=== PATIENT | female | born 1940 | race Caucasian/White ===

== ENCOUNTER 2017-02-08 07:12 | Inpatient (IN) ==
[2017-01-31 10:23] LABS: Basophils % 0.7 % (0.0-0.8); Eosinophils # 0.2 10*3/uL (0.0-0.87); Eosinophils % 2.9 % (0.00-10.9); Hematocrit 43.4 VOL% (35.7-47.0); Hemoglobin 14.3 GM/DL (12.0-16.0); Immature Granulocytes % 1.1 %; Immature Granulocytes Absolute 0.06 #; Lymphocytes # 1.7 10*3/uL (1.4-4.0); Lymphocytes % 30.2 % (21.3-54.2); Mean Corpuscular HGB Conc 32.9 GM/DL (32-36); Mean Corpuscular Hemoglobin 30 PG (27-34); Mean Corpuscular Volume 89.7 FL (87-102); Mean Platelet Volume 10.5 FL (9.6-12.0); Monocytes # 0.4 10*3/uL (0.11-0.8); Monocytes % 6.6 % (1.7-12.7); Neutrophils # 3.3 10*3/uL (1.4-7.4); Neutrophils % 58.5 % (38.7-73.9); Platelet Count 147 T/CUMM (130-400); Red Blood Count 4.84 MC/CUMM (3.8-5.5); Red Cell Distribution Width 13.7 % (9.3-17.3); White Blood Count 5.6 T/CUMM (4-12)
[2017-01-31 10:51] LABS: Calcium 8.8 MG/DL (8.5-10.1); Osmolality,Calculated 281.8 MOS/KG (273-304); Potassium 4.4 MMOL/L (3.5-5.1)
[2017-01-31 11:00] LABS: Apearance,Urine CLEAR (Clear); Bacteria,Urine Occasional /HPF (Few); Bilirubin,Urine Negative (Negative); Blood, Urine Negative (Negative); Glucose,Urine (UA) >=500 mg/dL (Negative); Ketones,Urine Negative (Negative); Mucus,Urine Occasional /LPF (Occasional); Nitrite,Urine Negative (Negative); Protein,Urine Negative; RBC,Urine 1 /HPF (0-4); Squamous Epithelial Cell,Urine Occasional /HPF (0-10); Urine Color Yellow (Yellow); Urine Specific Gravity 1.013 (1.001-1.035); Urine Urobilinogen < 2.0 EU/DL (0.2-1.0); WBC,Urine 1 /HPF (0-6)
--- NOTE | 2017-01-31 12:05 | XRay Report ---
XR chest 2V Indication: Preop evaluation Comparison: Chest x-ray dated July 10, 2015 Technique: Frontal and lateral views of the chest. Findings: Continued moderate cardiomegaly. Chronic change of the lungs without focal consolidation, pleural effusion, or pneumothorax. Visualized osseous and surrounding soft tissue structures appear grossly unchanged. IMPRESSION: Stable chest x-ray. Continued moderate cardiomegaly without jj pulmonary edema. PROCEDURE INTERPRETED AT [facility] DEPARTMENT OF RADIOLOGY Final Report Signed by: Dr Venkatesh Painting
--- NOTE | 2017-01-31 12:10 | EKG Report ---
Stationary ECG Study [facility] Test Date: 01/31/2017 11:04:06 AM Pat Name: LEVI TURPIN Department: Room: Gender: F Jd Edwards Consultant: JESSICA 02-[birth year]17 : 1940 Requested by: Fletcher Alvarez Order Number: [id number] Reading MD: ANDRIY TREVINO Intervals [place] Rate: 59 P: 67 [place]: 184 QRS: 37 QRSD: 69 T: 72 QT: 407 QTc: 406 Interpretive Statements SINUS RHYTHM at 59 bpm LOW QRS VOLTAGE IN PRECORDIAL LEADS Mild NST Electronically Signed On 01-31-17 12:47:05 CDT by ANDRIY TREVINO [id number]
[2017-02-08] MEDS: LACTATED RINGERS 1,000 ML IV SCH ×3 (07:45→23:20)
[2017-02-08] MEDS ORDERED: MIDAZOLAM 2 MG/2 ML VIAL ONE (09:32)
[2017-02-08] MEDS ORDERED: fentaNYL 100 MCG/2 ML VIAL ONE ×2 (09:33→13:00)
--- NOTE | 2017-02-08 09:34 | History and Physical Update ---
History and Physical Update - History and Physical H&P was reviewed, the patient examined and there: are no changes in the patients condition since last H&P was completed. (The patient is complaining more of right knee arthritic pain. Will inject during surgery.)
[2017-02-08] MEDS ORDERED: GLYCOPYRROLATE 0.4 MG/2 ML VIAL ONE (10:04)
[2017-02-08] MEDS ORDERED: PROPOFOL 200 MG/20 ML VIAL IV ONE (10:04)
[2017-02-08] MEDS ORDERED: PHENYLEPHRINE 1 MG/10 ML SYRINGE IV ONE (10:04)
[2017-02-08] MEDS ORDERED: NEOSTIGMINE 10 MG/10 ML VIAL ONE (10:04)
[2017-02-08] MEDS ORDERED: PHENYLEPHRINE 20 MG/250 ML PREMIX IV ONE (10:04)
[2017-02-08] MEDS ORDERED: DEXAMETHASONE 10 MG/1 ML VIAL ONE (10:04)
[2017-02-08] MEDS ORDERED: ONDANSETRON 4 MG/2 ML VIAL ONE (10:04)
[2017-02-08] MEDS ORDERED: LIDOCAINE 1% 5 ML VIAL ONE (10:04)
[2017-02-08] MEDS ORDERED: ROCURONIUM 100 MG/10 ML VIAL IV ONE (10:04)
[2017-02-08] MEDS ORDERED: ROPIVACAINE 0.5% 30 ML VIAL ONE (10:15)
[2017-02-08] MEDS ORDERED: BETAMETH SODIUM PHOS/ACETATE 30 MG/5 ML VIAL ONE (10:39)
[2017-02-08] MEDS ORDERED: ceFAZolin 1,000 MG VIAL ONE (10:43)
[2017-02-08] MEDS ORDERED: ceFAZolin 2,000 MG in PREMIX 1 EACH IV ONE (10:45)
--- NOTE | 2017-02-08 11:15 | XRay Report ---
XR calcaneus 2V RT Indication: Calcaneus osteotomy Comparison: None available Findings: Fluoroscopic imaging was used during osteotomy of the calcaneus. The alignment and hardware appears within normal limits on the images submitted. Fluoroscopy time 8 seconds Impression: Osteotomy changes as described above. PROCEDURE INTERPRETED AT [facility] DEPARTMENT OF RADIOLOGY Final Report Signed by: Dr. Bola Lama
[2017-02-08] MEDS ORDERED: BACITRACIN OINT 0.9 GM PACK TOP ONE (12:15)
[2017-02-08] MEDS ORDERED: EPINEPHRINE 0.3 MG IJ PRN (12:30)
[2017-02-08] MEDS ORDERED: MAGNESIUM HYDROXIDE SUSP 30 ML UDCUP PO PRN (12:31)
[2017-02-08] MEDS ORDERED: MORPHINE 2 MG/1 ML SYRINGE IV PRN (12:31)
[2017-02-08] MEDS ORDERED: GLUCAGON 1 MG VIAL IM PRN (12:31)
[2017-02-08] MEDS ORDERED: DEXTROSE 50% 25 GM/50 ML SYRINGE IV PRN (12:31)
[2017-02-08] MEDS ORDERED: ONDANSETRON 4 MG/2 ML VIAL IV PRN (12:31)
[2017-02-08] MEDS ORDERED: KETOROLAC 15 MG/1 ML VIAL IV PRN (12:31)
[2017-02-08] MEDS ORDERED: ACETAMINOPHEN/CODEINE 300-30 MG TABLET PO PRN ×2 (12:34)
--- NOTE | 2017-02-08 12:40 | Operative Note ---
Date of procedure: 02/08/17 Procedure: DIAGNOSIS: Right stage II posterior tibialis tendinitis. Right painful second hammertoe. Right knee osteoarthritis PROCEDURE: #1 right calcaneal medializing osteotomy #2 Right FDL to navicular tendon transfer #3 right second toe PIP arthroplasty #4 right knee corticosteroid injection SURGEON: Daniella ANESTHESIA: Right with postoperative popliteal block PROCEDURE and FINDINGS: After adequate anesthesia was induced, the right lower extremity was prepped and draped in usual sterile fashion. The limb was exsanguinated with Esmarch. Tourniquet was inflated to 300 mmHg. Estimated tourniquet time was 99 minutes and was released after splint and dressing application. A oblique incision was made over the lateral wall of her calcaneal tuberosity. Using combination sharp and blunt dissection, the calcaneal tuberosity was identified. An oblique osteotomy was performed using a saw and completed with an osteotome. The calcaneal tuberosity was medialized approximately 1 cm and was secured with a pin introduced posteriorly. The osteotomy was then fixed with a partially threaded stainless steel 6.5 mm screw. Image intensification was used in multiple planes during this portion of the procedure. Wounds were irrigated. Subcutaneous tissue was approximated with 3-0 Vicryl. Skin was closed with 3-0 nylon. Attention was directed medially. A longitudinal incision was made from the tip of the medial malleolus to the proximal portion of her first metatarsal. Deep fascia was entered. The posterior tibialis tendon demonstrated elongated distally just proximal to the insertion on the navicular. The floor of the posterior tibialis tendon sheath was incised longitudinally, the FDL tendon was identified. It was traced distally to the knot of Kavon. FDL and FHL tendons were sutured together with 2-0 Ethibond. The FDL tendon was released proximal to this juncture and was tagged with a 2-0 Ethibond. A appropriately sized drill hole was placed in the navicular. The tendon was passed through the the navicular. The tendon transfer was then tensioned in flexion and inversion. Multiple 2-0 Ethibond sutures were used to secure the repair. Deep layers were closed with 0 Vicryl. Subcutaneous tissue was approximated with 3-0 Vicryl. Skin was closed with 3-0 nylon. The second hammertoe was addressed through an full-thickness elliptical incision over the distal aspect of her second proximal phalanx. The distal portion of the proximal phalanx was resected with bone cutters. The cartilage from the proximal middle phalanx was denuded, exposing cancellus bone. A 0.0625 K wire was interviewed reduced in an antegraderetrograde technique. The pin was cut and a Jurgan's ball was placed. Wound was irrigated and closed with 4-0 nylon simple suture. 3 cc Celestone was injected into the knee through an anterior medial portal using aseptic technique. Bacitracin and a sterile dressing were applied. Short leg splint was applied. The patient was transferred recovery room. The patient is anticipated to receive a postoperative popliteal block for pain relief. Surgeon / Physician: Fletcher Brewer Jr. Results - Labs CBC & BMP: 01/31/17 10:15 01/31/17 10:10 Discharge Plan - Discharge Medications No Action Ranitidine Tab [Zantac Tab] 150 mg PO BID Carvedilol Cr [Coreg CR] 40 mg PO DAILY Aspirin [Ecotrin] 81 mg PO DAILY metFORMIN [Glucophage] 500 mg PO DAILY W/SUPPER DULoxetine [Cymbalta] 30 mg PO TID Oxybutynin [Ditropan] 5 mg PO DAILY Cyanocobalamin Inj [Vitamin B12 Inj] 1,000 mcg IM Q30D EPINEPHrine [Epipen 2-Xu] 0.3 mg IJ DIRECTED PRN PRN Reason: Anaphylaxis Benzonatate [Tessalon] 100 mg PO BID Cetirizine Tab [ZyrTEC Tab] 10 mg PO DAILY metFORMIN [Glucophage] 1,000 mg PO DAILY W/BREAKFAST Rosuvastatin [Crestor] 10 mg PO DAILY Lisinopril 1 tablet PO DAILY - Follow Up or Referral Follow Up: Fletcher Brewer Jr., MD [Physician] - - Forms/Instructions Instructions: Irma Garcia (DC)
[2017-02-08] MEDS ORDERED: DESFLURANE 1 UNIT/15 MINUTE INH ONE (12:59)
--- NOTE | 2017-02-08 13:16 | Anesthesia Post-Op ---
Anesthesia Post OP - Post Ansesthetic Evaluation Patient seen in post op: Yes Resp: within normal limits CV: within normal limits Mental: within normal limits Temp: within normal limits Mybj-[id number]-[id number]: within normal limits Nausea and Vomiting: within normal limits Pain: within normal limits
--- NOTE | 2017-02-08 16:24 | Orthopedic Progress Note ---
Orthopedics - Subjective Interval history: Ms. Erazo is upset about being admitted for observation. However she had ranged no one to be with her at night. She has threatened to leave AMA. Right lower extremity splinted. Capillary refill is less than 2 seconds. The block appears to still be working. Plan: I discussed with Mrs. Erazo that I feel that her age that she needs to have somebody with her tonight. I have strongly encouraged that she stay here. We have contacted nursing services, risk-management. We will plan to discharge her home tomorrow morning. Exam - Constitutional Vitals: Period Temp Pulse Resp BP Sys/Vogel Pulse Ox Last 24 Hr 97.0 F-97.6 F 62-85 16-19 109-157/65-83 88-95 Results - Labs CBC & BMP: 01/31/17 10:15 01/31/17 10:10 Specialty Discharge - Follow Up or Referrals Follow up with: Fletcher Brewer Jr., MD [Physician] -
[2017-02-08] MEDS: MORPHINE 2 MG/1 ML SYRINGE IV PRN ×2 (17:22→20:16)
[2017-02-08] MEDS: INSULIN LISPRO 100 UNIT/ML SUBCUT SCH ×2 (17:33→20:54)
[2017-02-08] MEDS: FAMOTIDINE 20 MG TABLET PO SCH (20:14)
[2017-02-08] MEDS: BENZONATATE 100 MG CAPSULE PO SCH (20:14)
[2017-02-08] MEDS: ceFAZolin 2,000 MG in PREMIX 1 EACH IV SCH (20:15)
[2017-02-09] MEDS: ceFAZolin 2,000 MG in PREMIX 1 EACH IV SCH (05:10)
[2017-02-09] MEDS: LACTATED RINGERS 1,000 ML IV SCH (06:03)
[2017-02-09] MEDS: INSULIN LISPRO 100 UNIT/ML SUBCUT SCH ×4 (08:34→20:49)
[2017-02-09] MEDS: ROSUVASTATIN 10 MG TABLET PO SCH (08:36)
[2017-02-09] MEDS: CETIRIZINE 10 MG TABLET PO SCH (08:36)
[2017-02-09] MEDS: OXYBUTYNIN 5 MG TABLET PO SCH (08:36)
[2017-02-09] MEDS: CARVEDILOL CR 40 MG CAPSULE PO SCH (08:36)
[2017-02-09] MEDS: BENZONATATE 100 MG CAPSULE PO SCH ×2 (08:36→20:49)
[2017-02-09] MEDS: DULoxetine 30 MG CAPSULE PO SCH (08:37)
[2017-02-09] MEDS: metFORMIN 500 MG TABLET PO SCH ×2 (08:37→16:48)
[2017-02-09] MEDS: FAMOTIDINE 20 MG TABLET PO SCH ×2 (08:37→20:49)
[2017-02-09] MEDS: ASPIRIN EC 81 MG TABLET PO SCH (08:37)
[2017-02-09] MEDS ORDERED: traMADol 50 MG TABLET PO PRN (08:48)
--- NOTE | 2017-02-09 08:50 | Orthopedic Progress Note ---
Orthopedics - Subjective Interval history: Ms Erazo feels better this morning. She agreed that she needed to spend the night. She is anxious to be discharged home as quickly she can. Right lower extremity she can flex extend her toes. She has some slight serosanguineous drainage posterior laterally. Response been overwrapped. Plan: Discharge instructions were reviewed. Keep splint clean, dry and intact. Elevate limb 6 inches over heart level. Strict nonweightbearing right lower extremity. Prescription for tramadol was written. Arrange for knee walker for home use. Set up home health physical therapy. Exam - Constitutional Vitals: Period Temp Pulse Resp BP Sys/Vogel Pulse Ox Last 24 Hr 96.7 F-98.3 F 76-95 16-20 109-157/64-85 88-100 Results - Labs CBC & BMP: 01/31/17 10:15 01/31/17 10:10 Specialty Discharge - Follow Up or Referrals Follow up with: Fletcher Brewer Jr., MD [Physician] -
[2017-02-09] MEDS: MORPHINE 2 MG/1 ML SYRINGE IV PRN ×2 (08:51→14:09)
[2017-02-09] MEDS: traMADol 50 MG TABLET PO PRN (14:29)
--- NOTE | 2017-02-10 07:42 | Orthopedic Progress Note ---
Orthopedics - Subjective Interval history: Ms Erazo is comfortable. She has decided on swing bed placement. She will be here through Monday. Right lower extremity is neurovascularly unchanged. Splint is intact. Her sugars have been running high, probably related to the intra-articular corticoid steroid injection for knee osteoarthritis. Since she is going to be here through Monday, I am going to consult the hospitalist service for diabetes management. Otherwise, continue physical therapy and mobilization. Exam - Constitutional Vitals: Period Temp Pulse Resp BP Sys/Vogel Pulse Ox Last 24 Hr 97.4 F-98.7 F 72-86 18-20 115-158/67-79 89-95 Results - Labs CBC & BMP: 01/31/17 10:15 01/31/17 10:10 Specialty Discharge - Follow Up or Referrals Follow up with: Fletcher Brewer Jr., MD [Physician] -
[2017-02-10] MEDS: INSULIN LISPRO 100 UNIT/ML SUBCUT SCH ×4 (08:22→21:14)
[2017-02-10] MEDS: ROSUVASTATIN 10 MG TABLET PO SCH (08:24)
[2017-02-10] MEDS: metFORMIN 500 MG TABLET PO SCH ×2 (08:24→18:12)
[2017-02-10] MEDS: CARVEDILOL CR 40 MG CAPSULE PO SCH (08:24)
[2017-02-10] MEDS: ASPIRIN EC 81 MG TABLET PO SCH (08:24)
[2017-02-10] MEDS: OXYBUTYNIN 5 MG TABLET PO SCH (08:25)
[2017-02-10] MEDS: CETIRIZINE 10 MG TABLET PO SCH (08:25)
[2017-02-10] MEDS: DULoxetine 30 MG CAPSULE PO SCH (08:25)
[2017-02-10] MEDS: BENZONATATE 100 MG CAPSULE PO SCH ×2 (08:25→21:07)
[2017-02-10] MEDS: FAMOTIDINE 20 MG TABLET PO SCH ×2 (08:25→21:07)
[2017-02-10] MEDS: traMADol 50 MG TABLET PO PRN (08:26)
[2017-02-10] MEDS ORDERED: BISACODYL 10 MG SUPP RECTAL ONE (10:44)
--- NOTE | 2017-02-10 10:47 | Hospitalist Consult Note ---
Addendum entered and electronically signed by Alejandra Bird NP 02/10/17 11:01: Also, Patient is suppose to go to [facility] for rehab on Monday. Original Note: Assessment and Plan - Time spent with patient Time spent with patient: Greater than 30 minutes (1) Diabetes Status: Acute Assessment and plan: Metformin was held in preparation for surgery. Metformin restarted 02/09/17 after surgery and blood sugars are improving. Will continue bedside glucose monitoring. Will add sliding scale. Will continue to monitor. Will discuss with Dr Sykes for further recommendations. Current Visit: Yes History of Present Illness - Consult Narrative Reason for consult: Medical Management/Diabetes History of present illness: Ms. Erazo is a very pleasant 76 year old white female with PMHx of HTN, Kidney disease, osteoporosis, and diabetes; admitted to Surgical Floor room 323 for planned/scheduled right calcaneal medializing osteotomy, right second toe PIP arthroplasty and right knee corticosteroid injection by Dr Brewer. 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 She has been on Metformin 1000mg w/ breakfast and 500mg w/ supper. She reports that it has been working fairly well for her. She was off Metformin for planned surgery but Metformin was resumed 02/09/17. Hospital medicine was consulted for assistance with medical management of diabetes. CC: Fletcher Brewer Jr., - Home Medications and Allergies Home Medications: Home Medications Medication Instructions Recorded Confirmed Type Aspirin [Ecotrin] 81 mg PO DAILY 01/31/17 02/08/17 History Carvedilol Cr [Coreg CR] 40 mg PO DAILY 01/31/17 02/08/17 History Cetirizine Tab [ZyrTEC Tab] 10 mg PO DAILY 01/31/17 02/08/17 History Cyanocobalamin Inj [Vitamin B12 1,000 mcg IM Q30D 01/31/17 02/08/17 History Inj] DULoxetine [Cymbalta] 90 mg PO DAILY 01/31/17 02/08/17 History EPINEPHrine [Epipen 2-Xu] 0.3 mg IM ONCE PRN 01/31/17 02/08/17 History Lisinopril 1 tablet PO DAILY 01/31/17 02/08/17 History Oxybutynin [Ditropan] 5 mg PO DAILY 01/31/17 02/08/17 History Ranitidine Tab [Zantac Tab] 150 mg PO BID 01/31/17 02/08/17 History Rosuvastatin [Crestor] 10 mg PO DAILY 01/31/17 02/08/17 History metFORMIN [Glucophage] 1,000 mg PO DAILY W/BREAKFAST 01/31/17 02/08/17 History metFORMIN [Glucophage] 500 mg PO DAILY W/SUPPER 01/31/17 02/08/17 History Benzonatate [Tessalon] 100 mg PO BID 02/08/17 02/08/17 History Allergies/Adverse Reactions: Allergies Allergy/AdvReac Type Severity Reaction Status Date / Time hydrocodone [From Lortab] Allergy Intermediate ITCHING Verified 02/08/17 07:23 Oxycodone [From Percocet] Allergy Intermediate ITCHING Verified 02/08/17 07:23 Medical,Surgical,& Family Hx - Medical History Cardio: History of: Cardiac Dysrhythmia (MURMUR.), Hypertension, SD (2007), Cardiovascular Problems (DR TREVINO; LAST VISIT 12/2016.) Psychological: History of: Depression Neurology: History of: Peripheral Neuropathy No history of: Seizures HEENT: History of: Eye Problem (GLASSES, CATARACTS) Endocrine: History of: Diabetes Mellitus (NIDDM) Respiratory: History of: Obstructive Sleep Apnea (PT DOES NOT USE CPAP.), Pneumonia (PAST HX) Comment Only: Respiratory Problems (FLU VAC- YES; PNEU VAC- YES.) Genitourinary: History of: Kidney Stones Gastrointestinal: History of: Diverticulitis/ Diverticulosis, GERD Musculoskeletal: History of: Musculoskeletal Problems (ARTHRITIS) Hematology: History of: Anemia (PAST HX) Other: History of: Anaphylaxis (2008.), Miscellaneous Medical Problems (PELVIC MASS REMOVED.) - Surgical History Cardiac Surgeries: Sugical HX of: Cardiac Catheterization HEENT Surgeries: Surgical HX of: Tonsilectomy & Adenoidectomy Abdominal Surgeries: Surgical HX of: Abdominal Surgery, Appendectomy, Colonoscopy, EGD Reproductive Surgeries: Surgical HX of;: Gynecologic Surgery, Hysterectomy Orthopedic Surgeries: Surgical HX of;: Orthopedic Surgery, Total Knee Replacement (LEFT KNEE.) - Family History Family History: Reports;: Family Cancer, Family Heart Disease, Family Hypertension - Social History Smoking Status: Never smoker Frequency of Alcohol Use: None Type of Drug Use: None Marital Status: Lives With:: Alone (At [facility]) Functional capacity: uses cane/walker (has apllied for an electric scooter) Review of systems: ROS systems completed and pertinent positives and negatives in the HPI. Exam - Constitutional Vitals: Period Temp Pulse Resp BP Sys/Vogel Pulse Ox Last 24 Hr 96.1 F-98.7 F 60-86 16-20 115-163/67-99 89-95 General appearance: normal weight, no acute distress, over weight - Head Head exam: Present: normal inspection - Eye Eye exam: Present: EOMI Pupils: Present: MERVIN - Neck Neck exam: Present: normal inspection - Respiratory Respiratory exam: Present: clear to auscultation bilaterally. Absent: stridor, wheezes - Cardiovascular Cardiovascular exam: Present: regular rate and rhythm - GI/Abdominal GI/Abdominal exam: Present: normal bowel sounds, soft. Absent: tenderness, rebound - Extremities Exam Extremities exam: Present: normal inspection (right splint/dressing intact to surgical site; elevated; pain appears controlled), full ROM - Neurological Exam Neurological exam: Present: alert, oriented X3 - Psychiatric Psychiatric exam: Present: normal affect, normal mood. Absent: agitated, anxious - Skin Skin exam: Present: normal color, warm, dry Results - Labs CBC & BMP: 01/31/17 10:15 01/31/17 10:10 Lab Results: I have reviewed the past 24 hour labs Labs: Blood sugar this a.m. down to 221; Metformin was restarted on 02/09/17. Specialty Discharge - Follow Up or Referrals Follow up with: Fletcher Brewer Jr., MD [Physician] -
[2017-02-10] MEDS ORDERED: SODIUM PHOSPHATE ENEMA 133 ML BOTTLE RECTAL ONE (15:08)
[2017-02-11 03:38] LABS: Magnesium 1.9 MG/DL (1.8-2.4); Potassium 4.3 MMOL/L (3.5-5.1)
--- NOTE | 2017-02-11 08:12 | Orthopedic Progress Note ---
Orthopedics - Subjective Interval history: She is postop right foot surgery for Posterior tibial tendon dysfunction and related problems. Stable. No problems. Nurses inform me she is waiting for placement. Lab: stable. afebrile Plan: no change in orthopaedic orders Exam - Constitutional Vitals: Period Temp Pulse Resp BP Sys/Vogel Pulse Ox Last 24 Hr 96.0 F-98.1 F 58-80 17-20 130-158/59-96 89-98 Results - Labs CBC & BMP: 01/31/17 10:15 02/11/17 02:40 Specialty Discharge - Follow Up or Referrals Follow up with: Fletcher Brewer Jr., MD [Physician] -
[2017-02-11] MEDS: metFORMIN 500 MG TABLET PO SCH ×2 (08:50→17:08)
[2017-02-11] MEDS: ASPIRIN EC 81 MG TABLET PO SCH (08:50)
[2017-02-11] MEDS: OXYBUTYNIN 5 MG TABLET PO SCH (08:51)
[2017-02-11] MEDS: FAMOTIDINE 20 MG TABLET PO SCH ×2 (08:51→20:51)
[2017-02-11] MEDS: CARVEDILOL CR 40 MG CAPSULE PO SCH (08:51)
[2017-02-11] MEDS: ROSUVASTATIN 10 MG TABLET PO SCH (08:51)
[2017-02-11] MEDS: DULoxetine 30 MG CAPSULE PO SCH (08:51)
[2017-02-11] MEDS: BENZONATATE 100 MG CAPSULE PO SCH ×2 (08:52→20:51)
[2017-02-11] MEDS: traMADol 50 MG TABLET PO PRN ×2 (08:52→20:52)
[2017-02-11] MEDS: CETIRIZINE 10 MG TABLET PO SCH (08:52)
[2017-02-11] MEDS: INSULIN LISPRO 100 UNIT/ML SUBCUT SCH ×4 (08:57→20:54)
--- NOTE | 2017-02-11 09:48 | Hospitalist Progress Note ---
Assessment and Plan - Time spent with patient Time spent with patient: Less than 30 minutes (1) Diabetes Status: Acute Assessment and plan: 02/11/17 - Improving Blood glucose. A1c 8.1. Continue Metformin; sliding scale coverage; continue to monitor. She c/o requiring an enema yesterday w/ some results but concerned about getting constipated. Will add Colace 100mg BID p.o. 02/10/17 -Metformin was held in preparation for surgery. Metformin restarted 04/18 after surgery and blood sugars are improving. Will continue bedside glucose monitoring. Will add sliding scale. Will continue to monitor. Will discuss with Dr Sykes for further recommendations. Current Visit: Yes Hospitalist: Subjective Interval history: Patient seen and chart reviewed. Ms Erazo just completed physical therapy and sitting up in chair. Splint and dressing to surgical site right lower leg/foot intact. She verbalized feeling okay this morning, just a little tired after completing physical therapy. She reported requiring an enema yesterday with some results, I will add colace 100mg P.O. BID [facility]. Blood sugars have improved. Exam - Constitutional Vitals: Period Temp Pulse Resp BP Sys/Vogel Pulse Ox Last 24 Hr 96.0 F-98.1 F 58-80 17-20 130-158/59-96 89-98 General appearance: no acute distress, over weight - Head Head exam: Present: normal inspection - Eye Eye exam: Present: EOMI Pupils: Present: MERVIN - ENT ENT exam: Present: normal exam - Neck Neck exam: Present: normal inspection - Respiratory Respiratory exam: Present: clear to auscultation bilaterally. Absent: rales, rhonchi, wheezes - Cardiovascular Cardiovascular exam: Present: regular rate and rhythm - GI/Abdominal GI/Abdominal exam: Present: normal bowel sounds, soft. Absent: tenderness, rebound - Extremities Exam Extremities exam: Present: full ROM, other (right leg splint/dressing intact s/ p right second toe PIP arthroplasty;right calcaneal medializing osteotomy;Right FDL to navicular tendon transfer). Absent: edema - Neurological Exam Neurological exam: Present: alert, oriented X3 - Psychiatric Psychiatric exam: Present: normal affect, normal mood. Absent: agitated, anxious - Skin Skin exam: Present: normal color, warm, dry Results - Labs CBC & BMP: 01/31/17 10:15 02/11/17 02:40 Lab Results: I have reviewed the past 24 hour labs Labs: A1c 8.1 Specialty Discharge - Follow Up or Referrals Follow up with: Fletcher Brewer Jr., MD [Physician] -
[2017-02-11] MEDS: DOCUSATE SODIUM 100 MG CAPSULE PO SCH ×2 (10:16→20:51)
[2017-02-12] MEDS: INSULIN LISPRO 100 UNIT/ML SUBCUT SCH ×4 (09:05→20:27)
[2017-02-12] MEDS: metFORMIN 500 MG TABLET PO SCH ×2 (09:05→16:51)
[2017-02-12] MEDS: DOCUSATE SODIUM 100 MG CAPSULE PO SCH ×2 (09:06→20:27)
[2017-02-12] MEDS: ASPIRIN EC 81 MG TABLET PO SCH (09:06)
[2017-02-12] MEDS: CARVEDILOL CR 40 MG CAPSULE PO SCH (09:06)
[2017-02-12] MEDS: ROSUVASTATIN 10 MG TABLET PO SCH (09:22)
[2017-02-12] MEDS: CETIRIZINE 10 MG TABLET PO SCH (09:23)
[2017-02-12] MEDS: BENZONATATE 100 MG CAPSULE PO SCH ×2 (09:23→20:27)
[2017-02-12] MEDS: OXYBUTYNIN 5 MG TABLET PO SCH (09:23)
[2017-02-12] MEDS: FAMOTIDINE 20 MG TABLET PO SCH ×2 (09:23→20:27)
[2017-02-12] MEDS ORDERED: diphenhydrAMINE 50 MG/1 ML VIAL IM ONE ×2 (09:50→15:06)
[2017-02-12] MEDS ORDERED: diphenhydrAMINE 50 MG/1 ML VIAL ONE (09:55)
--- NOTE | 2017-02-12 10:11 | Hospitalist Progress Note ---
Assessment and Plan - Time spent with patient Time spent with patient: Less than 30 minutes (1) Diabetes Status: Acute Assessment and plan: 02/12/17 - Blood Glucose remains stable. Continue Metformin; sliding scale coverage; continue monitoring. Plan to discharge on Monday to [facility] facility 02/11/17 - Improving Blood glucose. A1c 8.1. Continue Metformin; sliding scale coverage; continue to monitor. She c/o requiring an enema yesterday w/ some results but concerned about getting constipated. Will add Colace 100mg BID p.o. 02/10/17 -Metformin was held in preparation for surgery. Metformin restarted 04/18 after surgery and blood sugars are improving. Will continue bedside glucose monitoring. Will add sliding scale. Will continue to monitor. Will discuss with Dr Sykes for further recommendations. Current Visit: Yes Hospitalist: Subjective Interval history: 02/12/17 Patient seen and chart reviewed. Patient denies shortness of breath, fever, chills, nausea or vomiting. Patient had just returned to her bed from sitting up in the chair, no acute distress, but appeared upset and verbalized was because she is experiencing itching especially under splint to right leg, nursing staff was giving her morning medications including zyrtec, she feels that will help her complaint and a new ice pack. When asked if anything else was bothering her she states "I told you what was wrong, can't you hear". I explained to her that I just want to help her be as comfortable as possible and if she needs anything else to please let us know. Patient should be discharged tomorrow if approved to go to [facility]. Blood Glucose levels have been stable on current regimen treatment. Exam - Constitutional Vitals: Period Temp Pulse Resp BP Sys/Vogel Pulse Ox Last 24 Hr 96.1 F-97.3 F 61-79 17-20 138-165/72-85 91-97 General appearance: no acute distress, over weight - Head Head exam: Present: normal inspection - Eye Eye exam: Present: EOMI Pupils: Present: MERVIN - Neck Neck exam: Present: normal inspection - Respiratory Respiratory exam: Present: clear to auscultation bilaterally. Absent: stridor, wheezes - Cardiovascular Cardiovascular exam: Present: regular rate and rhythm - GI/Abdominal GI/Abdominal exam: Present: normal bowel sounds, soft. Absent: tenderness, rebound - Extremities Exam Extremities exam: Present: full ROM. Absent: edema (right leg splint/dressing intact) - Neurological Exam Neurological exam: Present: alert, oriented X3 - Psychiatric Psychiatric exam: Present: normal affect, normal mood, agitated (because she is experiencing some itching especially under splint to right lower leg). Absent: anxious - Skin Skin exam: Present: normal color, warm, dry Results - Labs CBC & BMP: 01/31/17 10:15 02/11/17 02:40 Lab Results: I have reviewed the past 24 hour labs Specialty Discharge - Follow Up or Referrals Follow up with: Fletcher Brewer Jr., MD [Physician] -
[2017-02-12] MEDS ORDERED: ACETAMINOPHEN/CODEINE 300-30 MG TABLET PO PRN (10:23)
--- NOTE | 2017-02-12 10:28 | Orthopedic Progress Note ---
Orthopedics - Subjective Interval history: This lady is alert oriented and stable following surgery right foot and ankle for among other things posterior tibial tendinitis syndrome. Current nursing issue is her continued complaints and wanting to be discharged. This exists nothing new it is been the situation since immediately after surgery. The problem is that she is not anybody to look after her at home and she would most likely get into difficulties if discharge. Arrangements are underway to to set up for a temporary senior care placement but that will not be any sooner than Monday. She is also complaining of itching. On her face is acne rosacea. Checking under her splint from both sides reveals no rash--all looks fine. Recommendations 1 Benadryl 50 mg IM 2. Benadryl p.o. 50 mg regularly 3. Xanax 0.5 mg p.o. twice daily Exam - Constitutional Vitals: Period Temp Pulse Resp BP Sys/Vogel Pulse Ox Last 24 Hr 96.1 F-97.3 F 61-79 17-20 138-165/72-85 91-97 Results - Labs CBC & BMP: 01/31/17 10:15 02/11/17 02:40 Specialty Discharge - Follow Up or Referrals Follow up with: Fletcher Brewer Jr., MD [Physician] -
[2017-02-12] MEDS ORDERED: ALPRAZolam 0.5 MG TABLET PO SCH (10:30)
[2017-02-12] MEDS ORDERED: diphenhydrAMINE CAP 50 MG CAPSULE PO SCH (10:30)
[2017-02-12] MEDS: DULoxetine 30 MG CAPSULE PO SCH (11:04)
[2017-02-12] MEDS: diphenhydrAMINE CAP 50 MG CAPSULE PO SCH ×3 (14:29→22:26)
--- NOTE | 2017-02-12 15:23 | Orthopedic Progress Note ---
Orthopedics - Subjective Interval history: Called to see patient at request of nursing service 14:55, reason was unruly behavior. She was found in bathroom, all clothes removed and trying to remover her splint. Complaint was itching and wanting to go home. Her po benadryl was found on floor where she had apparently spit it out and she refused another. We attempted to call her daughter to see if she would take Mrs. Erazo but no answer. Nurses say daughter had discussed this with them by phone this morning and had reiterated at that time that she was unable to look after her mother. I was unsuccessful in convincing the patient to settle down and remain hospitalized. Inspection under her splint revealed no rash or other indication of itching problems. I contacted nurse curtain supervisor to evaluate patient. We will give her benadryl im if she refuses po. It is unsafe to discharge her in this situation without reliable home help. All codeine type meds have been discontinued, although she had not had any for much of the day anyway--pain not an issue anyway. Agitation is. Now on Xanax. Exam - Constitutional Vitals: Period Temp Pulse Resp BP Sys/Vogel Pulse Ox Last 24 Hr 96.1 F-97.3 F 61-79 17-20 148-165/72-94 92-97 Results - Labs CBC & BMP: 01/31/17 10:15 02/11/17 02:40 Specialty Discharge - Follow Up or Referrals Follow up with: Fletcher Brewer Jr., MD [Physician] -
[2017-02-12] MEDS: IBUPROFEN 800 MG TABLET PO SCH ×2 (16:51→22:26)
[2017-02-12] MEDS: ALPRAZolam 0.5 MG TABLET PO SCH ×2 (16:51→20:27)
[2017-02-13 04:54] LABS: Basophils # 0.1 10*3/uL (0.0-0.2); Basophils % 0.7 % (0.0-0.8); Eosinophils # 0.2 10*3/uL (0.0-0.87); Eosinophils % 3.5 % (0.00-10.9); Hematocrit 40.7 VOL% (35.7-47.0); Hemoglobin 13.3 GM/DL (12.0-16.0); Immature Granulocytes Absolute 0.07 #; Lymphocytes # 2.5 10*3/uL (1.4-4.0); Lymphocytes % 35.4 % (21.3-54.2); Mean Corpuscular HGB Conc 32.7 GM/DL (32-36); Mean Corpuscular Hemoglobin 30 PG (27-34); Mean Corpuscular Volume 92.3 FL (87-102); Mean Platelet Volume 10.7 FL (9.6-12.0); Monocytes # 0.6 10*3/uL (0.11-0.8); Monocytes % 8.1 % (1.7-12.7); Neutrophils # 3.6 10*3/uL (1.4-7.4); Neutrophils % 51.3 % (38.7-73.9); Platelet Count 156 T/CUMM (130-400); Red Blood Count 4.41 MC/CUMM (3.8-5.5); Red Cell Distribution Width 13.9 % (9.3-17.3); White Blood Count 6.9 T/CUMM (4-12)
[2017-02-13 05:26] LABS: Calcium 9.5 MG/DL (8.5-10.1); Osmolality,Calculated 284.5 MOS/KG (273-304); Potassium 3.8 MMOL/L (3.5-5.1)
[2017-02-13] MEDS: diphenhydrAMINE CAP 50 MG CAPSULE PO SCH (05:58)
[2017-02-13] MEDS: IBUPROFEN 800 MG TABLET PO SCH (06:10)
[2017-02-13] MEDS: INSULIN LISPRO 100 UNIT/ML SUBCUT SCH ×2 (08:31→11:16)
[2017-02-13] MEDS: OXYBUTYNIN 5 MG TABLET PO SCH (08:32)
[2017-02-13] MEDS: CETIRIZINE 10 MG TABLET PO SCH (08:32)
[2017-02-13] MEDS: ROSUVASTATIN 10 MG TABLET PO SCH (08:32)
[2017-02-13] MEDS: ASPIRIN EC 81 MG TABLET PO SCH (08:32)
[2017-02-13] MEDS: DULoxetine 30 MG CAPSULE PO SCH (08:32)
[2017-02-13] MEDS: ALPRAZolam 0.5 MG TABLET PO SCH (08:32)
[2017-02-13] MEDS: BENZONATATE 100 MG CAPSULE PO SCH (08:32)
[2017-02-13] MEDS: FAMOTIDINE 20 MG TABLET PO SCH (08:32)
[2017-02-13] MEDS: CARVEDILOL CR 40 MG CAPSULE PO SCH (08:32)
[2017-02-13] MEDS: metFORMIN 500 MG TABLET PO SCH (08:32)
[2017-02-13] MEDS: DOCUSATE SODIUM 100 MG CAPSULE PO SCH (08:32)
--- NOTE | 2017-02-13 08:54 | Discharge Summary ---
Hospital Course - Hospital Course Hospital Course: Ms. Erazo was admitted after undergoing a calcaneal osteotomy with FDL tendon transfer for stage II posterior tibialis tendinitis. She is admitted for observation overnight for her obstructive sleep apnea. However the patient demonstrated that she was unable to go home and to take care of herself. She was unable to pass physical therapy. She was discharged to a swing bed in stable condition. The patient did attempt to remove her splint yesterday for itching. It was repositioned. The rationale for why the splint was on in the importance of maintaining were discussed. I discussed potential disruption of her tendon transfer. Specialty Discharge - Follow Up or Referrals Follow up with: Fletcher Brewer Jr., MD [Physician] - 02/23/17 2:10 pm Discharge Plan - Discharge Data Disposition: Disch/Xfer to Snf Discharge Diet: diabetic diet Hygiene: keep area(s) dry Weight Bearing at Discharge: non-weight bearing Driving: not until seen by doctor - Discharge Medications New diphenhydrAMINE CAP [Benadryl Cap] 50 mg PO Q8H capsule Docusate Sodium Cap [Colace Cap] 100 mg PO BID capsule Ibuprofen Tab [Motrin Tab] 800 mg PO Q8H tablet Continue Ranitidine Tab [Zantac Tab] 150 mg PO BID Carvedilol Cr [Coreg CR] 40 mg PO DAILY Aspirin [Ecotrin] 81 mg PO DAILY metFORMIN [Glucophage] 500 mg PO DAILY W/SUPPER DULoxetine [Cymbalta] 90 mg PO DAILY Oxybutynin [Ditropan] 5 mg PO DAILY Cyanocobalamin Inj [Vitamin B12 Inj] 1,000 mcg IM Q30D EPINEPHrine [Epipen 2-Xu] 0.3 mg IM ONCE PRN PRN Reason: Allergic Reaction Benzonatate [Tessalon] 100 mg PO BID Cetirizine Tab [ZyrTEC Tab] 10 mg PO DAILY metFORMIN [Glucophage] 1,000 mg PO DAILY W/BREAKFAST Rosuvastatin [Crestor] 10 mg PO DAILY Lisinopril 1 tablet PO DAILY - Follow Up or Referral Follow Up: Fletcher Brewer Jr., MD [Physician] - 02/23/17 2:10 pm - Forms/Instructions Instructions: [employer] (DC) Additional Discharge Instructions: Follow-up appointment 10-14 days. Keep splint clean, dry and intact. Strict nonweightbearing right lower extremity. Elevate 6 inches over heart level. Prescription for tramadol was written. Exam - Constitutional Vitals: Period Temp Pulse Resp BP Sys/Vogel Pulse Ox Last 24 Hr 96.0 F-98.2 F 59-75 16-19 133-159/63-94 91-98 Discharge Results Labs on day of discharge: Labs from last 24 hours 02/13/17 02/13/17 02/13/17 06:41 04:19 04:19 WBC 6.9 RBC 4.41 Hgb 13.3 Hct 40.7 MCV 92.3 MCH 30 MCHC 32.7 RDW 13.9 Plt Count 156 MPV 10.7 Neut % (Auto) 51.3 Lymph % (Auto) 35.4 Sibley % (Auto) 8.1 Eos % (Auto) 3.5 Baso % (Auto) 0.7 Neut # (Auto) 3.6 Lymph # (Auto) 2.5 S[place]y # (Auto) 0.6 Eos # (Auto) 0.2 Baso # (Auto) 0.1 Immature Gran % 1.0 Nucleated RBC % 0.0 Immature Gran # 0.07 Nucleated RBCs # 0.00 Immature Plt Fraction 0.0 Sodium 139 Potassium 3.8 Chloride 99 Carbon Dioxide 33 H Anion Gap 10.8 BUN 22 H Creatinine 0.90 GFR Calculation 72 BUN/Creatinine Ratio 24.00 H Glucose 187 H POC Glucose 222 H Calculated Osmolality 284.5 Calcium 9.5 Magnesium 2.0 02/12/17 02/12/17 02/12/17 20:09 16:09 10:57 WBC RBC Hgb Hct MCV MCH MCHC RDW Plt Count MPV Neut % (Auto) Lymph % (Auto) Sibley % (Auto) Eos % (Auto) Baso % (Auto) Neut # (Auto) Lymph # (Auto) Sibley # (Auto) Eos # (Auto) Baso # (Auto) Immature Gran % Nucleated RBC % Immature Gran # Nucleated RBCs # Immature Plt Fraction Sodium Potassium Chloride Carbon Dioxide Anion Gap BUN Creatinine GFR Calculation BUN/Creatinine Ratio Glucose POC Glucose 224 H 179 H 176 H Calculated Osmolality Calcium Magnesium DS: Provider Date of admission: 02/08/17 12:31 Primary care physician: Mark Farias Attending physician on admission: Fletcher Brewer Jr., Consults: 02/08/17 12:31 Consult to Physical Therapy [CONS] Routine Reason for Physical Therapy: Evaluate and Treat Start Therapy: Today Consult Comment: nwb rle 02/08/17 12:33 Consult to Case Mgmt/Social Srvs [CONS] Routine Reason for Case Mgmt/Social Srvs: Home Health Rehab Equipment Consult Comment: knee walker, wheel chair 02/09/17 11:17 Consult to Case Mgmt/Social Srvs [CONS] Routine Reason for Case Mgmt/Social Srvs: Rehab 02/09/17 11:18 Consult to Occupational Therapy [CONS] Routine Reason for Occupational Therapy: Evaluate and Treat 02/10/17 07:39 Consult to Physician [CONS] Routine 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
[2017-02-13] MEDS ORDERED: TUBERCULIN SKIN TEST 0.1 ML SYRINGE INTRADERM ONE (09:24)
--- NOTE | 2017-02-13 09:27 | Case Mgmt Physician Query Form ---
TB Signs and Symptoms Screening ([place]) INSTRUCTIONS: To be completed annually on residents/staff with a significant Tuberculin Skin Test (TST) upon admission/hire or a prior significant TST. To be completed on all staff at hire. Please respond to each listed symptom with an (X) in either the "YES" or "NO" box. Do you currently have any of the following symptoms: YES NO ( ) (x ) A cough If yes, is it: ( ) Productive ( ) Non- productive ( ) ( x) Hemoptysis (spitting up blood) ( ) (x ) Chest pains ( ) (x ) Weight Loss ( ) ( x) Fever ( ) ( x Night Sweats (x ) ( ) Weakness ( ) (x ) Loss of Appetite ( ) ( x) Difficulty Breathing If you answered YES" to any of the above questions, how long have symptoms been present? Comments: If you have any questions, please contact me. Thank you, Macye Whalen RN, Office : [phone] Email : [email or web address]
--- NOTE | 2017-02-13 09:43 | Hospitalist Progress Note ---
Assessment and Plan (1) Rupture of right posterior tibialis tendon Status: Acute Assessment and plan: s/p right calcaneal medializing osteotomy, right FDL to navicular tendon transfer and right, second toe PIP, right knee corticosteroid injection Current Visit: Yes (2) Diabetes Status: Acute Assessment and plan: hgb A1c 8.1 cont increase metformin to 1000 mg po bid, and added glyburide. Current Visit: Yes Hospitalist: Subjective Interval history: Patient has been rather hateful toward nursing. He refuses to let any nurses that are black of her medications. Administration is been advised of the problems with her. She is refused to go to [facility] today. She is temporarily agreed to go to [facility] she has been discharged. Exam - Constitutional Vitals: Period Temp Pulse Resp BP Sys/Vogel Pulse Ox Last 24 Hr 96.0 F-98.2 F 59-75 16-19 133-159/63-94 91-98 Exam: Heart Rate-[RRR] Lungs-[CTAB] GI-[+bs soft, NT] Ext-[no edema] Results - Labs CBC & BMP: 02/13/17 04:19 02/13/17 04:19 Lab Results: I have reviewed the past 24 hour labs Specialty Discharge - Follow Up or Referrals Follow up with: Fletcher Brewer Jr., MD [Physician] - 02/23/17 2:10 pm
[2017-02-13 12:02] VITALS: BP 145/79
--- NOTE | 2017-02-13 12:48 | Physician Query Form ---
CLICK EDIT DOCUMENT TO SELECT QUERY ANSWER --> OK --> SIGN Sherrie Talamantes RN Clinical Chief Clinical Officer W) [phone] (f) [phone] [email or web address] PROVIDERS: Make your selection(s) from the choices in EACH section by typing an "x" and enter comments in the comment section. Please use your independent medical judgment in providing your response. This request does not imply that any particular answer is desired or expected. CLINICAL INDICATORS: (Providers should not edit this section) Height: 5ft 2in Weight: 233 lbs Clerk Supervisor BMI: 42.7 Lead Applications Developer Notes: Class 3 obesity Clerk Supervisor Recommendations: Recommend 1600 eunice cons CHO diet usp for weight reduction/BG control. If applicable, please provide an associated diagnosis related to the abnormal BMI: BMI of 40 or greater: ( ) Overweight ( ) Obesity (x ) Morbid//Severe Obesity ( ) Obesity with Alveolar Hypoventilation ( ) Weight Gain ( ) BMI is not significant ( ) Other, please specify: ( ) Clinically unable to determine COMMENTS: PLEASE ALSO DOCUMENT RESPONSE IN PROGRESS NOTES AND/OR DISCHARGE SUMMARY Use of terms such as suspected, likely, or probable (associated with a specific diagnosis that is being evaluated, monitored, or treated as if it exists) are acceptable and can be restated in the discharge summary if not ruled out. MTDD
[2017-02-13] MEDS ORDERED: glyBURIDE 2.5 MG TABLET PO SCH (17:00)
[2017-02-13] MEDS ORDERED: metFORMIN 500 MG TABLET PO SCH (21:00)
[2017-02-14] MEDS ORDERED: CYANOCOBALAMIN 1000 MCG/1 ML VIAL IM SCH (09:00)
== END 2017-02-13 13:15 | DRG 501 ==
LOC: N.OR 07:12 → N.SDSINP 07:13 → N.3E 15:30
PROVIDERS: ADMIT Orthopaedic Surgery; ATTEND Orthopaedic Surgery

== ENCOUNTER 2017-08-08 10:00 | Inpatient (IN) ==
[2017-07-31 15:29] LABS: Basophils % 0.6 % (0.0-0.8); Eosinophils # 0.2 10*3/uL (0.0-0.87); Eosinophils % 2.5 % (0.00-10.9); Hemoglobin 15.1 GM/DL (12.0-16.0); Immature Granulocytes % 0.4 %; Immature Granulocytes Absolute 0.03 #; Lymphocytes # 2.1 10*3/uL (1.4-4.0); Lymphocytes % 29.6 % (21.3-54.2); Mean Corpuscular HGB Conc 33.6 GM/DL (32-36); Mean Corpuscular Hemoglobin 30 PG (27-34); Mean Corpuscular Volume 89.6 FL (87-102); Mean Platelet Volume 10.9 FL (9.6-12.0); Monocytes # 0.5 10*3/uL (0.11-0.8); Monocytes % 6.3 % (1.7-12.7); Neutrophils # 4.3 10*3/uL (1.4-7.4); Neutrophils % 60.6 % (38.7-73.9); Platelet Count 182 T/CUMM (130-400); Red Blood Count 5.02 MC/CUMM (3.8-5.5); Red Cell Distribution Width 13.2 % (9.3-17.3); White Blood Count 7.2 T/CUMM (4-12)
[2017-07-31 15:40] LABS: PT Patient Result 10.4 SECS; Partial Thromboplastin Time 24.8 SECS (0-40)
[2017-07-31 15:59] LABS: Bilirubin,Total 0.6 MG/DL (0.2-1.0); Calcium 9.2 MG/DL (8.5-10.1); Osmolality,Calculated 284.7 MOS/KG (273-304); Potassium 4.5 MMOL/L (3.5-5.1); Total Protein 6.8 G/DL (6.4-8.3)
[2017-07-31 16:02] LABS: Apearance,Urine CLOUDY (Clear); Bacteria,Urine Occasional /HPF (Few); Bilirubin,Urine Negative (Negative); Blood, Urine Negative (Negative); Glucose,Urine (UA) Negative (Negative); Ketones,Urine 5 mg/dL (Negative); Mucus,Urine Occasional /LPF (Occasional); Nitrite,Urine Negative (Negative); Protein,Urine 30 MG/DL; RBC,Urine 3 /HPF (0-4); Squamous Epithelial Cell,Urine Occasional /HPF (0-10); Urine Specific Gravity 1.031 (1.001-1.035); WBC,Urine 13 /HPF (0-6)
[2017-07-31 16:03] LABS: Urine Color Yellow (Yellow)
[~2017-08-08 10:00] MED LIST: VANCOMYCIN INJ 1,000 MG in SODIUM CHLORIDE 0.9% 250 ML IV ONE; ceFAZolin 1,000 MG in SYRINGE 1 EACH IV ONE
[2017-08-30] MEDS ORDERED: ROPIVACAINE 0.5% 30 ML VIAL ONE (06:07)
[2017-08-30] MEDS ORDERED: TRANEXAMIC ACID 1,000 MG/10 ML VIAL IV ONE (06:07)
[2017-08-30] MEDS ORDERED: FAMOTIDINE 20 MG TABLET PO ONE (07:04)
[2017-08-30] MEDS ORDERED: LIDOCAINE MPF 2% /EPI 20 ML VIAL ONE (07:20)
[2017-08-30] MEDS ORDERED: LACTATED RINGERS 1,000 ML IV SCH (07:30)
[2017-08-30] MEDS ORDERED: ceFAZolin 1,000 MG VIAL ONE ×2 (07:39→09:28)
[2017-08-30] MEDS ORDERED: FAMOTIDINE 20 MG TABLET ONE (07:39)
[2017-08-30] MEDS ORDERED: VANCOMYCIN 1,000 MG VIAL ONE (07:39)
[2017-08-30] MEDS ORDERED: ceFAZolin 1,000 MG in SYRINGE 1 EACH IV ONE (07:44)
[2017-08-30] MEDS ORDERED: VANCOMYCIN INJ 1,000 MG in SODIUM CHLORIDE 0.9% 250 ML IV ONE ×2 (07:44→17:23)
[2017-08-30] MEDS ORDERED: EPINEPHrine 1 MG/ML VIAL IM PRN (09:19)
[2017-08-30] MEDS ORDERED: MAGNESIUM HYDROXIDE SUSP 30 ML UDCUP PO PRN (09:22)
[2017-08-30] MEDS ORDERED: oxyCODONE IR 5 MG TABLET PO PRN ×2 (09:22)
[2017-08-30] MEDS ORDERED: ONDANSETRON 4 MG/2 ML VIAL IV PRN ×2 (09:22→11:13)
[2017-08-30] MEDS ORDERED: GLUCAGON 1 MG VIAL IM PRN (09:25)
[2017-08-30] MEDS ORDERED: DEXTROSE 50% 25 GM/50 ML VIAL IV PRN (09:25)
[2017-08-30] MEDS ORDERED: BACITRACIN OINT 0.9 GM PACK TOP ONE (09:28)
[2017-08-30] MEDS ORDERED: MIDAZOLAM 2 MG/2 ML VIAL ONE (11:04)
[2017-08-30] MEDS ORDERED: fentaNYL 100 MCG/2 ML VIAL ONE (11:05)
[2017-08-30] MEDS ORDERED: PROPOFOL 200 MG/20 ML VIAL IV ONE (11:05)
[2017-08-30] MEDS ORDERED: ACETAMINOPHEN 1,000 MG/100 ML VIAL IV ONE (11:06)
[2017-08-30] MEDS ORDERED: LACTATED RINGERS 1,000 ML IV ONE (11:06)
[2017-08-30] MEDS ORDERED: HYDROmorphone 2 MG/1 ML VIAL ONE (11:12)
[2017-08-30] MEDS ORDERED: ONDANSETRON 4 MG/2 ML VIAL ONE (11:12)
[2017-08-30] MEDS: HYDROmorphone 2 MG/1 ML VIAL IV PRN ×4 (11:15→11:30)
[2017-08-30] MEDS: INSULIN REGULAR 100 UNIT/ML SUBCUT SCH ×3 (11:30→21:23)
[2017-08-30] MEDS: diphenhydrAMINE CAP 25 MG CAPSULE PO PRN (14:31)
[2017-08-30] MEDS: ACETAMINOPHEN 500 MG TABLET PO SCH ×2 (14:32→21:20)
[2017-08-30] MEDS: KETOROLAC 15 MG/1 ML VIAL IV SCH ×2 (14:33→21:20)
[2017-08-30] MEDS: DULoxetine 30 MG CAPSULE PO SCH ×2 (14:34→21:19)
[2017-08-30] MEDS: FAMOTIDINE 20 MG TABLET PO SCH ×2 (14:35→21:19)
[2017-08-30] MEDS: ceFAZolin 2,000 MG in PREMIX 1 EACH IV SCH ×2 (14:50→21:25)
[2017-08-30] MEDS: LISINOPRIL 10 MG TABLET PO SCH (15:01)
[2017-08-30] MEDS: CLINDAMYCIN 1% LOTION 60 ML BOTTLE TOP SCH (21:17)
[2017-08-30] MEDS: BENZONATATE 100 MG CAPSULE PO SCH (21:19)
[2017-08-30] MEDS: DOCUSATE SODIUM 100 MG CAPSULE PO SCH (21:19)
[2017-08-31] MEDS: LACTATED RINGERS 1,000 ML IV SCH ×2 (00:33→02:14)
[2017-08-31] MEDS: ACETAMINOPHEN 500 MG TABLET PO SCH ×2 (01:11→09:09)
[2017-08-31] MEDS: KETOROLAC 15 MG/1 ML VIAL IV SCH ×2 (01:12→10:07)
[2017-08-31] MEDS: diphenhydrAMINE CAP 25 MG CAPSULE PO PRN (02:52)
[2017-08-31] MEDS: FONDAPARINUX 2.5 MG/0.5 ML SYRINGE SUBCUT SCH (04:12)
[2017-08-31 05:28] LABS: Basophils % 0.4 % (0.0-0.8); Eosinophils # 0.3 10*3/uL (0.0-0.87); Eosinophils % 4.1 % (0.00-10.9); Hematocrit 37.3 VOL% (35.7-47.0); Hemoglobin 12.1 GM/DL (12.0-16.0); Immature Granulocytes % 0.8 %; Immature Granulocytes Absolute 0.06 #; Lymphocytes # 1.4 10*3/uL (1.4-4.0); Lymphocytes % 19.1 % (21.3-54.2); Mean Corpuscular HGB Conc 32.4 GM/DL (32-36); Mean Corpuscular Hemoglobin 30 PG (27-34); Mean Corpuscular Volume 92.6 FL (87-102); Mean Platelet Volume 11.4 FL (9.6-12.0); Monocytes # 0.7 10*3/uL (0.11-0.8); Monocytes % 9.6 % (1.7-12.7); Neutrophils # 4.8 10*3/uL (1.4-7.4); Platelet Count 135 T/CUMM (130-400); Red Blood Count 4.03 MC/CUMM (3.8-5.5); Red Cell Distribution Width 13.2 % (9.3-17.3); White Blood Count 7.3 T/CUMM (4-12)
[2017-08-31 05:56] LABS: Calcium 8.1 MG/DL (8.5-10.1); Osmolality,Calculated 283.7 MOS/KG (273-304); Potassium 4.3 MMOL/L (3.5-5.1)
[2017-08-31] MEDS: MORPHINE 2 MG/1 ML SYRINGE IV PRN ×4 (08:02→22:15)
[2017-08-31] MEDS ORDERED: CARVEDILOL CR 40 MG CAPSULE PO SCH (09:00)
[2017-08-31] MEDS ORDERED: ACETAMINOPHEN 500 MG TABLET ONE (09:05)
[2017-08-31] MEDS: DOCUSATE SODIUM 100 MG CAPSULE PO SCH ×2 (09:10→21:48)
[2017-08-31] MEDS: DULoxetine 30 MG CAPSULE PO SCH ×3 (09:12→21:53)
[2017-08-31] MEDS: FUROSEMIDE 20 MG TABLET PO SCH (09:12)
[2017-08-31] MEDS: OXYBUTYNIN 5 MG TABLET PO SCH (09:12)
[2017-08-31] MEDS: ROSUVASTATIN 10 MG TABLET PO SCH (09:12)
[2017-08-31] MEDS: LISINOPRIL 10 MG TABLET PO SCH (09:13)
[2017-08-31] MEDS: BENZONATATE 100 MG CAPSULE PO SCH ×2 (09:13→21:48)
[2017-08-31] MEDS: FAMOTIDINE 20 MG TABLET PO SCH ×2 (09:13→21:48)
[2017-08-31] MEDS: CETIRIZINE 10 MG TABLET PO SCH (09:14)
[2017-08-31] MEDS: INSULIN REGULAR 100 UNIT/ML SUBCUT SCH ×4 (09:15→21:48)
[2017-08-31] MEDS: CLINDAMYCIN 1% LOTION 60 ML BOTTLE TOP SCH ×2 (09:25→21:51)
[2017-08-31] MEDS: metFORMIN 500 MG TABLET PO SCH ×2 (09:31→21:48)
[2017-08-31] MEDS ORDERED: KETOROLAC 15 MG/1 ML VIAL IV SCH (10:00)
[2017-08-31] MEDS: traMADol 50 MG TABLET PO PRN ×2 (12:38→18:27)
[2017-08-31] MEDS ORDERED: CARVEDILOL CR 20 MG CAPSULE PO SCH (14:30)
[2017-08-31] MEDS: CELECOXIB 200 MG CAPSULE PO SCH (16:22)
[2017-09-01] MEDS: MORPHINE 2 MG/1 ML SYRINGE IV PRN (02:16)
[2017-09-01] MEDS: FONDAPARINUX 2.5 MG/0.5 ML SYRINGE SUBCUT SCH (02:54)
[2017-09-01 05:13] LABS: Basophils # 0.1 10*3/uL (0.0-0.2); Basophils % 0.7 % (0.0-0.8); Eosinophils # 0.4 10*3/uL (0.0-0.87); Eosinophils % 4.3 % (0.00-10.9); Hematocrit 42.7 VOL% (35.7-47.0); Immature Granulocytes % 0.9 %; Immature Granulocytes Absolute 0.08 #; Lymphocytes # 1.2 10*3/uL (1.4-4.0); Lymphocytes % 12.6 % (21.3-54.2); Mean Corpuscular HGB Conc 32.8 GM/DL (32-36); Mean Corpuscular Hemoglobin 30 PG (27-34); Mean Platelet Volume 11.2 FL (9.6-12.0); Monocytes # 0.7 10*3/uL (0.11-0.8); Monocytes % 7.4 % (1.7-12.7); Neutrophils # 6.8 10*3/uL (1.4-7.4); Neutrophils % 74.1 % (38.7-73.9); Platelet Count 156 T/CUMM (130-400); Red Blood Count 4.64 MC/CUMM (3.8-5.5); Red Cell Distribution Width 13.4 % (9.3-17.3); White Blood Count 9.2 T/CUMM (4-12)
[2017-09-01] MEDS ORDERED: CARVEDILOL CR 10 MG CAPSULE PO SCH (09:00)
[2017-09-01] MEDS: INSULIN REGULAR 100 UNIT/ML SUBCUT SCH ×2 (09:05→12:38)
[2017-09-01] MEDS: CELECOXIB 200 MG CAPSULE PO SCH (09:06)
[2017-09-01] MEDS: ROSUVASTATIN 10 MG TABLET PO SCH (09:06)
[2017-09-01] MEDS: metFORMIN 500 MG TABLET PO SCH (09:06)
[2017-09-01] MEDS: FUROSEMIDE 20 MG TABLET PO SCH (09:07)
[2017-09-01] MEDS: LISINOPRIL 10 MG TABLET PO SCH (09:07)
[2017-09-01] MEDS: DULoxetine 30 MG CAPSULE PO SCH (09:07)
[2017-09-01] MEDS: OXYBUTYNIN 5 MG TABLET PO SCH (09:07)
[2017-09-01] MEDS: FAMOTIDINE 20 MG TABLET PO SCH (09:07)
[2017-09-01] MEDS: DOCUSATE SODIUM 100 MG CAPSULE PO SCH (09:07)
[2017-09-01] MEDS: CETIRIZINE 10 MG TABLET PO SCH (09:07)
[2017-09-01] MEDS: BENZONATATE 100 MG CAPSULE PO SCH (09:20)
[2017-09-01 12:11] VITALS: BP 110/89
== END 2017-09-01 14:15 | disposition home health service (06) | DRG 470 ==
LOC: N.SDSINP 08-30 05:43 → N.3E 08-30 09:21
PROVIDERS: ADMIT Orthopaedic Surgery; ATTEND Orthopaedic Surgery

== ENCOUNTER 2021-08-04 11:14 | Inpatient (IN) ==
[2021-08-04 12:32] LABS: Basophils % 0.3 % (0.0-0.8); Hematocrit 44.5 VOL% (35.7-47.0); Hemoglobin 14.7 GM/DL (12.0-16.0); Immature Granulocytes % 0.6 %; Immature Granulocytes Absolute 0.04 #; Lymphocytes # 0.9 10*3/uL (1.4-4.0); Mean Corpuscular Volume 88.3 FL (87-102); Mean Platelet Volume 10.9 FL (9.6-12.0); Monocytes % 6.8 % (1.7-12.7); Neutrophils % 79.3 % (38.7-73.9); Platelet Count 174 T/CUMM (130-400); Red Blood Count 5.04 MC/CUMM (3.8-5.5); Red Cell Distribution Width 13.9 % (9.3-17.3); White Blood Count 6.8 T/CUMM (4-12)
[2021-08-04 12:51] LABS: Albumin 2.8 G/DL (3.4-5.0); Bilirubin,Total 0.9 MG/DL (0.20-1.00); Osmolality,Calculated 265.2 MOS/KG (273-304); Potassium 4.1 MMOL/L (3.5-5.1); Total Protein 6.6 G/DL (6.4-8.2)
[2021-08-04] MEDS ORDERED: SODIUM CHLORIDE 0.9% 1,000 ML IV STA (13:00)
[2021-08-04] MEDS ORDERED: cefTRIAXone 1,000 MG in SODIUM CHLORIDE 0.9% 100 ML IV STA (13:00)
[2021-08-04] MEDS ORDERED: GLUCAGON 1 MG VIAL IM PRN ×2 (14:19→14:27)
[2021-08-04] MEDS ORDERED: DEXTROSE 10% 250 ML BAG IV PRN ×2 (14:19→14:27)
[2021-08-04] MEDS ORDERED: ONDANSETRON 4 MG/2 ML VIAL IV PRN (14:27)
[2021-08-04] MEDS ORDERED: AZITHROMYCIN INJ 500 MG in SODIUM CHLORIDE 0.9% 250 ML IV ONE (14:32)
[2021-08-04] MEDS ORDERED: FLUTICASONE 50 MCG NASAL SPRAY 16 GM BOTTLE BOTH NARES PRN (15:06)
[2021-08-04] MEDS: SODIUM CHLORIDE 0.9% 1,000 ML IV SCH (18:26)
[2021-08-04] MEDS: INSULIN LISPRO 100 UNIT/ML SUBCUT SCH ×2 (18:26→21:22)
[2021-08-04] MEDS: ENOXAPARIN 40 MG/0.4 ML SYRINGE SUBCUT SCH (21:00)
[2021-08-04 21:29] LABS: Bilirubin,Urine Negative (Negative); Blood, Urine Negative (Negative); Glucose,Urine (UA) >=500 mg/dL (Negative); Ketones,Urine Negative (Negative); Mucus,Urine Occasional /LPF (Occasional); Nitrite,Urine Negative (Negative); Protein,Urine 30 MG/DL; RBC,Urine 2 /HPF (0-4); Squamous Epithelial Cell,Urine Occasional /HPF (0-10); Urine Appearance Slightly Hazy (Clear); Urine Color Yellow (Yellow); Urine Specific Gravity 1.013 (1.001-1.035); Urine Urobilinogen < 2.0 EU/DL (<2.0)
[2021-08-04] MEDS: FAMOTIDINE 20 MG TABLET PO SCH (21:38)
[2021-08-04] MEDS: cycloSPORINE OPH EMUL 1 VIAL BOTH EYES SCH (21:38)
[2021-08-04] MEDS: ASCORBIC ACID 500 MG TABLET PO SCH (21:38)
[2021-08-04] MEDS: NYSTATIN CREAM 15 GM TUBE TOP SCH (21:39)
[2021-08-05] MEDS: oxyCODONE/ACETAMINOPHEN 5-325 MG TABLET PO PRN (04:18)
[2021-08-05 05:35] LABS: Basophils % 0.4 % (0.0-0.8); Hematocrit 40.2 VOL% (35.7-47.0); Immature Granulocytes % 1.1 %; Immature Granulocytes Absolute 0.06 #; Lymphocytes # 0.7 10*3/uL (1.4-4.0); Lymphocytes % 12.8 % (21.3-54.2); Mean Corpuscular HGB Conc 32.3 GM/DL (32-36); Mean Corpuscular Volume 88.9 FL (87-102); Mean Platelet Volume 10.6 FL (9.6-12.0); Monocytes % 5.7 % (1.7-12.7); Platelet Count 156 T/CUMM (130-400); Red Blood Count 4.52 MC/CUMM (3.8-5.5); Red Cell Distribution Width 13.7 % (9.3-17.3); White Blood Count 5.5 T/CUMM (4-12)
[2021-08-05 06:02] LABS: Alanine Aminotransferase 22 U/L (13-56); Albumin 2.4 G/DL (3.4-5.0); Alkaline Phosphatase 58 U/L (45-117); Aspartate Amino Transferase 37 U/L (0-37); Bilirubin,Total < 0.39 MG/DL (0.20-1.00); Blood Urea Nitrogen 28 MG/DL (7-18); Calcium 8.4 MG/DL (8.5-10.1); Carbon Dioxide 22 MMOL/L (21-32); Estimated Glom Filtration Rate 44 ML/MIN; Glucose 159 MG/DL (74-106); Osmolality,Calculated 268.8 MOS/KG (273-304); Potassium 3.7 MMOL/L (3.5-5.1); Sodium 130 MMOL/L (136-145); Total Protein 6.1 G/DL (6.4-8.2)
[2021-08-05] MEDS: ACETAMINOPHEN 325 MG TABLET PO PRN ×2 (06:05→13:31)
[2021-08-05] MEDS ORDERED: CETIRIZINE 10 MG TABLET PO SCH (09:00)
[2021-08-05] MEDS: SODIUM CHLORIDE 0.9% 1,000 ML IV SCH ×2 (12:00→13:01)
[2021-08-05] MEDS: INSULIN LISPRO 100 UNIT/ML SUBCUT SCH ×5 (13:01→21:28)
[2021-08-05] MEDS: FAMOTIDINE 20 MG TABLET PO SCH ×2 (13:02→21:21)
[2021-08-05] MEDS: NYSTATIN CREAM 15 GM TUBE TOP SCH ×2 (13:02→21:21)
[2021-08-05] MEDS: ASCORBIC ACID 500 MG TABLET PO SCH ×2 (13:04→21:20)
[2021-08-05] MEDS: ZINC GLUCONATE 50 MG TABLET PO SCH (13:20)
[2021-08-05] MEDS: CHOLECALCIFEROL 1,000 UNIT TABLET PO SCH (13:20)
[2021-08-05] MEDS: OXYBUTYNIN XL 10 MG TABLET PO SCH (13:21)
[2021-08-05] MEDS: DULoxetine 30 MG CAPSULE PO SCH (13:21)
[2021-08-05] MEDS: LINACLOTIDE 145 MCG CAPSULE PO SCH (13:21)
[2021-08-05] MEDS: CETIRIZINE 10 MG TABLET PO SCH (13:21)
[2021-08-05] MEDS: ROSUVASTATIN 20 MG TABLET PO SCH (13:21)
[2021-08-05] MEDS: AZITHROMYCIN 250 MG TABLET PO SCH (13:21)
[2021-08-05] MEDS: cycloSPORINE OPH EMUL 1 VIAL BOTH EYES SCH ×2 (13:23→21:20)
[2021-08-05] MEDS: DEXAMETHASONE 4 MG/1 ML VIAL IV SCH (13:23)
[2021-08-05] MEDS: cefTRIAXone 1,000 MG in SODIUM CHLORIDE 0.9% 100 ML IV SCH (15:03)
[2021-08-05] MEDS: ENOXAPARIN 40 MG/0.4 ML SYRINGE SUBCUT SCH (15:03)
[2021-08-06] MEDS: SODIUM CHLORIDE 0.9% 1,000 ML IV SCH ×3 (04:08→18:14)
[2021-08-06 05:53] LABS: Calcium 8.3 MG/DL (8.5-10.1); Osmolality,Calculated 272.5 MOS/KG (273-304); Potassium 3.9 MMOL/L (3.5-5.1)
[2021-08-06] MEDS: LINACLOTIDE 145 MCG CAPSULE PO SCH (09:54)
[2021-08-06] MEDS: OXYBUTYNIN XL 10 MG TABLET PO SCH (09:55)
[2021-08-06] MEDS: ZINC GLUCONATE 50 MG TABLET PO SCH (09:55)
[2021-08-06] MEDS: AZITHROMYCIN 250 MG TABLET PO SCH (09:55)
[2021-08-06] MEDS: CHOLECALCIFEROL 1,000 UNIT TABLET PO SCH (09:55)
[2021-08-06] MEDS: DULoxetine 30 MG CAPSULE PO SCH (09:55)
[2021-08-06] MEDS: NYSTATIN CREAM 15 GM TUBE TOP SCH ×2 (09:56→21:03)
[2021-08-06] MEDS: ROSUVASTATIN 20 MG TABLET PO SCH (09:56)
[2021-08-06] MEDS: DEXAMETHASONE 4 MG/1 ML VIAL IV SCH (09:56)
[2021-08-06] MEDS: FAMOTIDINE 20 MG TABLET PO SCH ×2 (09:56→21:01)
[2021-08-06] MEDS: ASCORBIC ACID 500 MG TABLET PO SCH ×2 (09:56→21:01)
[2021-08-06] MEDS: CETIRIZINE 10 MG TABLET PO SCH (09:56)
[2021-08-06] MEDS: INSULIN LISPRO 100 UNIT/ML SUBCUT SCH ×4 (10:23→21:05)
[2021-08-06] MEDS: oxyCODONE/ACETAMINOPHEN 5-325 MG TABLET PO PRN ×2 (11:53→21:02)
[2021-08-06] MEDS: cycloSPORINE OPH EMUL 1 VIAL BOTH EYES SCH ×2 (12:15→21:13)
[2021-08-06] MEDS: SODIUM BICARBONATE 650 MG TABLET PO SCH ×2 (13:12→21:01)
[2021-08-06 14:16] LABS: Hematocrit 39.9 VOL% (35.7-47.0); Hemoglobin 13.1 GM/DL (12.0-16.0); Immature Granulocytes % 0.5 %; Immature Granulocytes Absolute 0.04 #; Lymphocytes # 0.5 10*3/uL (1.4-4.0); Lymphocytes % 6.4 % (21.3-54.2); Mean Corpuscular HGB Conc 32.8 GM/DL (32-36); Mean Corpuscular Volume 88.5 FL (87-102); Mean Platelet Volume 10.4 FL (9.6-12.0); Monocytes % 3.4 % (1.7-12.7); Neutrophils % 89.7 % (38.7-73.9); Platelet Count 180 T/CUMM (130-400); Red Blood Count 4.51 MC/CUMM (3.8-5.5); Red Cell Distribution Width 13.8 % (9.3-17.3); White Blood Count 8.3 T/CUMM (4-12)
[2021-08-06] MEDS ORDERED: cefTRIAXone 1,000 MG VIAL IM ONE (15:00)
[2021-08-06] MEDS: ENOXAPARIN 40 MG/0.4 ML SYRINGE SUBCUT SCH (15:41)
[2021-08-06] MEDS: cefTRIAXone 1,000 MG in SODIUM CHLORIDE 0.9% 100 ML IV SCH (16:11)
[2021-08-07] MEDS: SODIUM CHLORIDE 0.9% 1,000 ML IV SCH ×2 (05:42→14:09)
[2021-08-07 06:25] LABS: Calcium 8.5 MG/DL (8.5-10.1); Osmolality,Calculated 279.1 MOS/KG (273-304); Potassium 3.8 MMOL/L (3.5-5.1)
[2021-08-07] MEDS: OXYBUTYNIN XL 10 MG TABLET PO SCH (08:28)
[2021-08-07] MEDS: SODIUM BICARBONATE 650 MG TABLET PO SCH (08:28)
[2021-08-07] MEDS: DULoxetine 30 MG CAPSULE PO SCH (08:28)
[2021-08-07] MEDS: ASCORBIC ACID 500 MG TABLET PO SCH (08:28)
[2021-08-07] MEDS: ROSUVASTATIN 20 MG TABLET PO SCH (08:28)
[2021-08-07] MEDS: CHOLECALCIFEROL 1,000 UNIT TABLET PO SCH (08:28)
[2021-08-07] MEDS: AZITHROMYCIN 250 MG TABLET PO SCH (08:29)
[2021-08-07] MEDS: LINACLOTIDE 145 MCG CAPSULE PO SCH (08:29)
[2021-08-07] MEDS: FAMOTIDINE 20 MG TABLET PO SCH (08:29)
[2021-08-07] MEDS: cycloSPORINE OPH EMUL 1 VIAL BOTH EYES SCH (08:29)
[2021-08-07] MEDS: CETIRIZINE 10 MG TABLET PO SCH (08:29)
[2021-08-07] MEDS: ZINC GLUCONATE 50 MG TABLET PO SCH (08:29)
[2021-08-07] MEDS: oxyCODONE/ACETAMINOPHEN 5-325 MG TABLET PO PRN (08:30)
[2021-08-07] MEDS: NYSTATIN CREAM 15 GM TUBE TOP SCH (08:33)
[2021-08-07] MEDS ORDERED: DEXAMETHASONE 4 MG TABLET PO SCH (09:00)
[2021-08-07] MEDS ORDERED: CYANOCOBALAMIN 1000 MCG/1 ML VIAL IM SCH (09:00)
[2021-08-07] MEDS ORDERED: MAGNESIUM SULF RIDER 2 GM/50 ML PREMIX IV ONE (09:04)
[2021-08-07] MEDS: INSULIN LISPRO 100 UNIT/ML SUBCUT SCH ×2 (10:13→12:01)
[2021-08-07 11:49] VITALS: BP 110/79
== END 2021-08-07 14:05 | disposition home health service (06) | DRG 177 ==
LOC: SUATTDRO → N.ED 11:14 → SUATTDRO 14:19 → N.EDINP 14:19 → N.TELEN 08-05 03:11
PROVIDERS: ADMIT Internal Medicine; ATTEND Internal Medicine